=== PATIENT | female | born 1985 | race Caucasian/White ===

== ENCOUNTER → 2020-01-06 | Outpatient (CLI) | payer OTHER ==
[~2020-01-06] MED LIST: ALBU8.5H5 IH; ALPR0.25 PO; AMOX1TAB64 PO; ESCI10TA10 PO; GUAI10LI PO; LEVO500T8 PO; NITR100C56 PO; OMNIPAQUE 350 MG/ML, 50 ML BOTTLE ONE; ONDA4TAB10 PO; OXYC-302 PO; OXYC-306 PO; PREN1TAB28 PO; SENN-92 PO
== END | disposition home or self-care (01) ==
LOC: RAD 12:18
PROVIDERS: ATTEND Obstetrics & Gynecology Reproductive Endocrinology
DX: N70.11 Chronic salpingitis (principal)
CPT/HCPCS: 58340; 74740; Q9967

== ENCOUNTER → 2020-01-08 | Outpatient (CLI) | payer OTHER ==
[~2020-01-08] MED LIST changes: -OMNIPAQUE 350 MG/ML, 50 ML BOTTLE ONE
== END | disposition home or self-care (01) ==
LOC: LAB 13:10
PROVIDERS: ATTEND Obstetrics & Gynecology Reproductive Endocrinology
DX: N92.1 Excessive and frequent menstruation with irregular cycle (principal)
CPT/HCPCS: 36415; 82397; 82670; 83001; 84146; 84443; 86706; 86762; 86780; 86803; 87340; 87491; 87591; 87806; G0475

== ENCOUNTER 2020-03-13 11:08 | Emergency (ER) | payer OTHER ==
[~2020-03-13] VITALS: Ht 160 cm; Wt 96.7 kg
[~2020-03-13 11:08] MED LIST changes: -OXYC-302 PO; -OXYC-306 PO; +OXYC1TAB14 PO; +OXYC1TAB17 PO
[2020-03-13] MEDS ORDERED: PREN1TAB98 PO (11:40)
--- NOTE | 2020-03-13 11:47 | NUR ---
PT. TO ED WITH C/O SPOTTING THIS AM. STATES CRAMPING STARTED SHORTLY AFTER. A0. DELBERT DUPREE IN TO [facility]. AND DISCUSS POC.
[2020-03-13 12:11] LABS: BASOPHILS % (AUTO) 0 % (0-1); EOSINOPHILS % (AUTO) 2 % (1-7); LYMPHOCYTES % (AUTO) 18 % (22-44); MEAN CORPUSCULAR HGB CONC 34.4 g/dL (32.4-35.8); MEAN PLATELET VOLUME 8.8 fL (7.4-10.4); MONOCYTES % (AUTO) 8 % (2-9); NEUTROPHILS % (AUTO) 72 % (42-75); PLATELET COUNT 237 x10^3/uL (130-400); RED BLOOD COUNT 4.22 x10^6/uL (3.82-5.3); RED CELL DISTRIBUTION WIDTH 13.5 % (9.6-15.2)
[2020-03-13 12:12] LABS: MD NO
[2020-03-13 12:14] LABS: MICROSCOPIC AUTO
[2020-03-13 12:23] LABS: ALBUMIN 3.5 g/dL (3.4-5.0); ANION GAP 7 mmol/L (5-15); CALCIUM 8.9 mg/dL (8.5-10.1); CHLORIDE 106 mmol/L (98-107)
[2020-03-13 12:43] LABS: CREATININE 0.52 mg/dL (0.55-1.02)
[2020-03-13 12:54] VITALS: BP 121/75
--- NOTE | 2020-03-13 12:55 | NUR ---
US COMPLETED. VS UPDATED AND STABLE. PT. DENIES NEEDS AT THIS TIME. NO DISTRESS NOTED.
--- NOTE | 2020-03-13 13:21 | NUR ---
ALL RESULTS ARE BACK. CHART UP FOR RECHECK BY PROVIDER.
== END 2020-03-13 13:31 | disposition home or self-care (01) ==
LOC: ED 12:41
DX: O20.0 Threatened abortion (principal); Z3A.01 Less than 8 weeks gestation of pregnancy
CPT/HCPCS: 36415; 76801; 80048; 81001; 82040; 84702; 85025; 86901; 99284

== ENCOUNTER 2020-06-10 17:54 | Emergency (ER) | payer OTHER ==
[~2020-06-10] VITALS: Ht 160 cm; Wt 98.0 kg
[~2020-06-10 17:54] MED LIST changes: +PREN1TAB98 PO
[2020-06-10] MEDS ORDERED: FOLI1TAB32 PO (18:05)
[2020-06-10] MEDS ORDERED: CHOL10003 PO (18:05)
[2020-06-10] MEDS ORDERED: PRENATAL PO (18:05)
--- NOTE | 2020-06-10 18:38 | NUR ---
PT BROUGHT STRAIGHT FROM [employer], PT WAS STANDING AT WORK WHEN SHE FELT A SHARP, RIPPING PAIN TO RIGHT UPPER ABD QUAD, RADIATING THROUGH TO BACK FOR SEVERAL SECONDS. PT IS 20 WEEKS . PT DENIES VAG BLEEDING/CRAMPING/DISCHARGE. PT DENIES PAIN AT THIS TIME. PT A&O, RESPS EVEN AND UNLABORED. PT ATTACHED TO BP AND SPO2 MONITORS. 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 US ORDRED. AWAITING US AND DISPO.
--- NOTE | 2020-06-10 18:50 | NUR ---
REPORT FROM [facility] AT THIS TIME TRANSFER OF CARE.
[2020-06-10 18:53] VITALS: BP 111/69
--- NOTE | 2020-06-10 18:55 | NUR ---
REPORT GIVEN TO KRYSTINA PINEDA, US IN PROGRESS AT BEDSIDE. PT A&O, RESPS EVEN AND UNLABORED, NADN. BP AND SPO2 MONITORS IN PLACE.
== END 2020-06-10 20:36 | disposition home or self-care (01) ==
LOC: ED 18:08
DX: O26.892 Other specified pregnancy related conditions, second trimester (principal); R10.13 Epigastric pain; R10.33 Periumbilical pain; J45.909 Unspecified asthma, uncomplicated; Z3A.18 18 weeks gestation of pregnancy
CPT/HCPCS: 76815; 99284

== ENCOUNTER 2020-07-05 14:37 | Outpatient (CLI) | payer OTHER ==
[~2020-07-05] VITALS: Ht 160 cm; Wt 97.7 kg
[~2020-07-05 14:37] MED LIST changes: +CHOL10003 PO; +FOLI1TAB32 PO; +PRENATAL PO
[2020-07-05 14:48] VITALS: BP 117/62
[2020-07-05 15:36] LABS: MICROSCOPIC NOT IND
[2020-07-05 15:48] LABS: AMPHETAMINE SCREEN, URINE Negative (Negative); BARBITURATE SCREEN, URINE Negative (Negative); BENZODIAZEPINE SCREEN, URINE Negative (Negative); CANNABINOID SCREEN, URINE Negative (Negative); COCAINE SCREEN, URINE Negative (Negative); METHADONE SCREEN, URINE Negative (Negative); OPIATE SCREEN, URINE Negative (Negative)
== END 2020-07-05 15:58 | disposition home or self-care (01) ==
LOC: LDOP 14:37
PROVIDERS: ATTEND Student in an Organized Health Care Education/Training Program
DX: O99.512 Diseases of the respiratory system complicating pregnancy, second trimester (principal); R06.02 Shortness of breath; Z3A.22 22 weeks gestation of pregnancy
CPT/HCPCS: 80307; 81003; 99211; G0463

== ENCOUNTER 2020-09-17 01:16 | Outpatient (CLI) | payer OTHER ==
[~2020-09-17] VITALS: Ht 160 cm; Wt 97.7 kg
[2020-09-17 01:49] LABS: MICROSCOPIC NOT IND
[2020-09-17 02:00] VITALS: BP 126/72
[2020-09-17] MEDS ORDERED: PROMETHAZINE 25MG TABLET PO PRN (03:00)
[2020-09-17] MEDS ORDERED: TERBUTALINE 1 MG/ML, 1ML SQ ONE (03:00)
[2020-09-17] MEDS ORDERED: MEPERIDINE 50 MG TABLET PO PRN (03:00)
== END 2020-09-17 03:20 | disposition home or self-care (01) ==
LOC: LDOP 01:16
PROVIDERS: ATTEND Student in an Organized Health Care Education/Training Program
DX: O62.9 Abnormality of forces of labor, unspecified (principal); O47.03 False labor before 37 completed weeks of gestation, third trimester; Z3A.33 33 weeks gestation of pregnancy
CPT/HCPCS: 59025; 76817; 81003; 87086; Q0169

== ENCOUNTER 2020-10-18 07:03 | Emergency (ER) | payer OTHER ==
[~2020-10-18] VITALS: Ht 160 cm; Wt 100.1 kg
[~2020-10-18 07:03] MED LIST changes: +OXYC1TAB12 PO; -OXYC1TAB14 PO; +OXYC1TAB16 PO; -OXYC1TAB17 PO
--- NOTE | 2020-10-18 07:11 | NUR ---
L&D ACCOUNTS RECEIVABLE CLERK NOTIFIED OF PT, STATED THEY WILL BE DOWN TO DO HEART TONES ON BABY
--- NOTE | 2020-10-18 07:19 | NUR ---
PATIENT ARRIVES TO ER WITH 24 HOURS OF BODY ACHES, COUGH, COLD SWEATS, NV. PATIENT 39 WEEKS , DUE DATE 11/03/20 SCHEDULED FOR C SECTION. PATIENT WAS WORKING THIS MORNING AND THEY ENCOURAGED HER TO COME DOWN.
--- NOTE | 2020-10-18 07:29 | NUR ---
laura alvarez md. let l and d know they will come do heart tones/or nst.
[2020-10-18] MEDS ORDERED: SODIUM CHLORIDE FLUSH 10ML SYR IVF ONE (07:30)
[2020-10-18] MEDS ORDERED: SODIUM CHLORIDE 0.9% 1,000ML IVBOLUS ONE (07:30)
[2020-10-18] MEDS ORDERED: ONDANSETRON 2MG/ML, 2ML IVPush PRN (07:30)
[2020-10-18] MEDS ORDERED: ONDANSETRON 2MG/ML, 2ML ONE (07:51)
[2020-10-18 08:08] LABS: BASOPHILS % (AUTO) 0 % (0-1); EOSINOPHILS % (AUTO) 0 % (1-7); LYMPHOCYTES % (AUTO) 8 % (22-44); MEAN CORPUSCULAR HEMOGLOBIN 29.1 pg (27.0-34.8); MEAN CORPUSCULAR HGB CONC 33.2 g/dL (32.4-35.8); MEAN PLATELET VOLUME 9.4 fL (7.4-10.4); MONOCYTES % (AUTO) 13 % (2-9); NEUTROPHILS % (AUTO) 79 % (42-75); PLATELET COUNT 159 x10^3/uL (130-400); RED BLOOD COUNT 3.75 x10^6/uL (3.82-5.3); RED CELL DISTRIBUTION WIDTH 14.7 % (9.6-15.2)
--- NOTE | 2020-10-18 08:08 | NUR ---
LD here and monitoring baby
--- NOTE | 2020-10-18 08:10 | NUR ---
will collect urine when monitoring completed.
[2020-10-18 08:18] LABS: ALANINE AMINOTRANSFERASE 22 U/L (12-78); ALBUMIN 2.5 g/dL (3.4-5.0); ANION GAP 9 mmol/L (5-15); CALCIUM 8.4 mg/dL (8.5-10.1); CHLORIDE 104 mmol/L (98-107); CREATININE 0.51 mg/dL (0.55-1.02)
[2020-10-18 08:20] LABS: ALKALINE PHOSPHATASE 112 U/L (45-117); BILIRUBIN,TOTAL 0.4 mg/dL (0.2-1.0); TOTAL PROTEIN 6.2 g/dL (6.4-8.2)
[2020-10-18] MEDS ORDERED: ACETAMINOPHEN 500 MG TABLET ONE (08:26)
[2020-10-18] MEDS ORDERED: CEFTRIAXONE 1,000 MG in DEXTROSE 5% 50 ML IVPB ONE (08:30)
[2020-10-18] MEDS ORDERED: ACETAMINOPHEN 500 MG TABLET PO ONE (08:30)
--- NOTE | 2020-10-18 08:48 | NUR ---
urine sent clean catch. patient being drawn bc then will hang antibiotics
[2020-10-18 08:51] LABS: MICROSCOPIC NOT IND
--- NOTE | 2020-10-18 08:59 | NUR ---
report bia tai rn
--- NOTE | 2020-10-18 09:00 | NUR ---
REport received from Matias RN and care assumed. Pt with laborer tree tapping and US tech at bedside for exams now.
--- NOTE | 2020-10-18 09:25 | NUR ---
US tech and lab intern done with their exams. BC sets drawn, so Rocephin IV given as ordered. NS bolus completed and d/c'd. Pt states some effect on body aches present after Tylenol admin on reassessment at this time. Pt denied need for restroom and call light in reach. Pt states Jack-Rodriguez contractions present and have been since week 24 of gestation.
--- NOTE | 2020-10-18 09:55 | NUR ---
Joss gtt completed and d/c'd. Pt awaiting d/c paperwork with direction to go straight to L&D for further eval secondary to US findings per .
[2020-10-18 10:01] VITALS: BP 109/56
--- NOTE | 2020-10-18 10:02 | NUR ---
Pt d/c'd from ED with Saline lock left in place. Pt in wheelchair for transport to L&D with ED techs in a moment. Brief update to L&D RN provided via telephone as well as notification of pt leaving dept now after L&D RN called to inquire about pt.
== END 2020-10-18 10:09 | disposition home or self-care (01) ==
LOC: ED 07:55
DX: O98.513 Other viral diseases complicating pregnancy, third trimester (principal); U07.1 COVID-19; J18.0 Bronchopneumonia, unspecified organism; R06.02 Shortness of breath; O99.513 Diseases of the respiratory system complicating pregnancy, third trimester; J45.909 Unspecified asthma, uncomplicated; Z3A.38 38 weeks gestation of pregnancy
CPT/HCPCS: 36415; 71045; 76819; 80053; 81003; 83605; 84145; 85025; 87040; 87635; 93005; 96361; 96365; 96375; 99285; J0696; J2405; J7030; U0003; U0005

== ENCOUNTER 2020-10-18 10:18 | Observation (INO) | payer OTHER ==
[2020-10-18] MEDS ORDERED: METOCLOPRAMIDE 5 MG/ML, 2ML IV ONE (10:30)
[2020-10-18] MEDS ORDERED: PLEASE ENTER HEIGHT AND WEIGHT MC SCH (10:30)
[2020-10-18] MEDS ORDERED: LACTATED RINGERS 1,000 ML IVBOLUS ONE (10:30)
[2020-10-18] MEDS ORDERED: SODIUM CITRATE/CITRIC ACID 30 ML UDC PO ONE (10:30)
[2020-10-18] MEDS ORDERED: LACTATED RINGERS 1,000 ML IV SCH (13:00)
[2020-10-18] MEDS ORDERED: ACETAMINOPHEN 500 MG TABLET PO ONE (14:00)
[2020-10-18] MEDS ORDERED: MEPERIDINE/PF 50 MG/ML ONE (14:56)
[2020-10-18] MEDS ORDERED: CASIRIVIMAB 600 MG, IMDEVIMAB (REGN10987) 600 MG in SODIUM CHLORIDE 0.9% 250 ML IVPB ONE (15:00)
[2020-10-18] MEDS ORDERED: MEPERIDINE/PF 50 MG/ML IVPush ONE (15:00)
[2020-10-18] MEDS ORDERED: FILTER 0.22 MICRON IV ONE (15:00)
[2020-10-18] MEDS ORDERED: MEPERIDINE 50 MG TABLET PO ONE (15:00)
== END 2020-10-18 17:50 | disposition home or self-care (01) ==
LOC: INTOOBSV 10:18 → LDIP 10:18
PROVIDERS: ADMIT Student in an Organized Health Care Education/Training Program; ATTEND Student in an Organized Health Care Education/Training Program
DX: O98.513 Other viral diseases complicating pregnancy, third trimester (principal); U07.1 COVID-19; J12.82 Pneumonia due to coronavirus disease 2019; O99.513 Diseases of the respiratory system complicating pregnancy, third trimester; J45.909 Unspecified asthma, uncomplicated; O99.213 Obesity complicating pregnancy, third trimester; E66.01 Morbid (severe) obesity due to excess calories; O99.343 Other mental disorders complicating pregnancy, third trimester; F32.9 Major depressive disorder, single episode, unspecified; O34.219 Maternal care for unspecified type scar from previous cesarean delivery; O99.843 Bariatric surgery status complicating pregnancy, third trimester; Z3A.37 37 weeks gestation of pregnancy; Z79.899 Other long term (current) drug therapy; Z86.14 Personal history of Methicillin resistant Staphylococcus aureus infection
CPT/HCPCS: 36415; 59025; 76819; 86850; 86900; 96360; 96361; 96374; 96375; G0378; J2175; J7120; M0243

== ENCOUNTER 2020-10-19 19:39 | Outpatient (CLI) | payer OTHER ==
[2020-10-19 20:32] LABS: MICROSCOPIC INDICATED
== END 2020-10-19 21:30 | disposition home or self-care (01) ==
LOC: LDOP 19:39
PROVIDERS: ATTEND Student in an Organized Health Care Education/Training Program
DX: O36.8130 Decreased fetal movements, third trimester, not applicable or unspecified (principal); Z3A.37 37 weeks gestation of pregnancy
CPT/HCPCS: 59025; 76819; 81001

== ENCOUNTER 2020-10-22 16:11 | Outpatient (CLI) | payer OTHER | END 2020-10-22 18:30 | disposition home or self-care (01) | LOC: LDOP 16:11 | PROVIDERS: ATTEND Student in an Organized Health Care Education/Training Program | DX: Z34.93 Encounter for supervision of normal pregnancy, unspecified, third trimester (principal); Z3A.38 38 weeks gestation of pregnancy | CPT/HCPCS: 59025; 76819 ==

== ENCOUNTER 2020-10-27 09:39 | Observation (INO) | payer OTHER ==
[~2020-10-27] VITALS: Ht 160 cm; Wt 100.0 kg
[2020-10-27 13:28] LABS: BASOPHILS % (AUTO) 1 % (0-1); EOSINOPHILS % (AUTO) 1 % (1-7); LYMPHOCYTES % (AUTO) 18 % (22-44); MEAN CORPUSCULAR HEMOGLOBIN 29.2 pg (27.0-34.8); MEAN CORPUSCULAR HGB CONC 33.7 g/dL (32.4-35.8); MEAN PLATELET VOLUME 9.1 fL (7.4-10.4); MONOCYTES % (AUTO) 7 % (2-9); NEUTROPHILS % (AUTO) 74 % (42-75); PLATELET COUNT 221 x10^3/uL (130-400); RED BLOOD COUNT 4.05 x10^6/uL (3.82-5.3); RED CELL DISTRIBUTION WIDTH 15.2 % (9.6-15.2)
[2020-10-27] MEDS ORDERED: LACTATED RINGERS 1,000 ML IV SCH (13:30)
[2020-10-27] MEDS ORDERED: LACTATED RINGERS 1,000 ML IVBOLUS ONE (13:30)
[2020-10-27] MEDS ORDERED: PLEASE ENTER HEIGHT AND WEIGHT MC SCH (14:00)
== END 2020-10-27 16:55 | disposition home or self-care (01) ==
LOC: LDOP 09:39 → LDIP 16:15
PROVIDERS: ADMIT Student in an Organized Health Care Education/Training Program; ATTEND Student in an Organized Health Care Education/Training Program
DX: Z34.83 Encounter for supervision of other normal pregnancy, third trimester (principal); Z86.16 Personal history of COVID-19; Z3A.39 39 weeks gestation of pregnancy
CPT/HCPCS: 36415; 59025; 76805; 76819; 85025; 96360; 96361; G0378; G0379; J7120

== ENCOUNTER 2020-10-28 01:42 | Inpatient (IN) | payer OTHER ==
[~2020-10-28] VITALS: Ht 160 cm; Wt 99.8 kg
[2020-10-28] MEDS ORDERED: NEWBORN KIT ONE ×2 (05:35→10:42)
[2020-10-28] MEDS ORDERED: SODIUM CITRATE/CITRIC ACID 15 ML UDC ONE (05:36)
[2020-10-28] MEDS ORDERED: METOCLOPRAMIDE 5 MG/ML, 2ML ONE (05:36)
[2020-10-28 05:54] VITALS: BP 133/66
[2020-10-28] MEDS ORDERED: ONDANSETRON 2MG/ML, 2ML IVPush ONE ×2 (06:00→06:30)
[2020-10-28] MEDS ORDERED: LACTATED RINGERS 1,000 ML IVBOLUS ONE (06:00)
[2020-10-28] MEDS ORDERED: SODIUM CITRATE/CITRIC ACID 30 ML UDC PO ONE ×3 (06:00→10:00)
[2020-10-28] MEDS ORDERED: METOCLOPRAMIDE 5 MG/ML, 2ML IV ONE ×3 (06:00→10:00)
[2020-10-28 06:12] LABS: BASOPHILS % (AUTO) 1 % (0-1); EOSINOPHILS % (AUTO) 1 % (1-7); LYMPHOCYTES % (AUTO) 20 % (22-44); MEAN CORPUSCULAR HEMOGLOBIN 28.9 pg (27.0-34.8); MEAN CORPUSCULAR HGB CONC 33.5 g/dL (32.4-35.8); MEAN PLATELET VOLUME 9.2 fL (7.4-10.4); MONOCYTES % (AUTO) 9 % (2-9); NEUTROPHILS % (AUTO) 69 % (42-75); PLATELET COUNT 221 x10^3/uL (130-400); RED BLOOD COUNT 3.68 x10^6/uL (3.82-5.3); RED CELL DISTRIBUTION WIDTH 14.9 % (9.6-15.2)
[2020-10-28] MEDS ORDERED: LACTATED RINGERS 1,000 ML IV SCH (06:30)
[2020-10-28] MEDS ORDERED: CALCIUM CARBONATE 500 MG TAB.CHEW PO PRN (06:30)
[2020-10-28] MEDS ORDERED: CEFAZOLIN PMX 1GM/50ML 50 ML IVPB ONE (06:30)
[2020-10-28] MEDS ORDERED: OXYTOCIN 30U/ 0.9% NaCL 500ML 500 ML ONE (07:14)
[2020-10-28] MEDS ORDERED: morphine SULFATE/PF 0.5 MG/ML, 10ML ONE (07:24)
[2020-10-28] MEDS ORDERED: ONDANSETRON 2MG/ML, 2ML ONE (07:26)
[2020-10-28] MEDS ORDERED: OXYTOCIN 10 UNITS/ML, 1ML ONE (07:26)
[2020-10-28] MEDS ORDERED: CEFAZOLIN 1,000 MG ONE (07:26)
[2020-10-28] MEDS ORDERED: KETOROLAC 30 MG/1 ML ONE (07:26)
[2020-10-28] MEDS ORDERED: SODIUM CHLORIDE 0.9% PF 10ML ONE ×2 (07:26→07:50)
[2020-10-28] MEDS ORDERED: PHENYLEPHRINE 10 MG/ML ONE (07:26)
[2020-10-28] MEDS ORDERED: DEXAMETHASONE 4 MG/ML, 1ML ONE (07:26)
[2020-10-28] MEDS ORDERED: EPHEDRINE 50 MG/ML, 1ML ONE (07:50)
[2020-10-28] MEDS ORDERED: METHYLENE BLUE 50 MG/10 ML AMP ONE (08:22)
[2020-10-28] MEDS: PRENATAL VIT/IRON/FA 1 EACH TABLET PO SCH (09:00)
[2020-10-28] MEDS: LACTATED RINGERS 1,000 ML IV SCH ×4 (09:00→19:00)
[2020-10-28] MEDS ORDERED: ONDANSETRON 2MG/ML, 2ML IV PRN (09:00)
[2020-10-28] MEDS ORDERED: MISOPROSTOL 200 MCG TABLET PR PRN (09:00)
[2020-10-28] MEDS: IBUPROFEN 600 MG TABLET PO SCH ×3 (09:00→21:00)
[2020-10-28] MEDS ORDERED: OXYcodone IR 5MG TABLET PO PRN (09:00)
[2020-10-28] MEDS ORDERED: DIPHENHYDRAMINE 50 MG/ML, 1ML IVPush PRN (10:00)
[2020-10-28] MEDS ORDERED: OXYcodone 5 MG/5 ML ORAL.SOL UDC PO PRN (10:00)
[2020-10-28] MEDS: OXYTOCIN 30U/ 0.9% NaCL 500ML 500 ML IV SCH ×2 (10:07→19:00)
[2020-10-28 11:30] VITALS: BP 115/70
[2020-10-28] MEDS: KETOROLAC 30 MG/1 ML IV SCH ×2 (14:08→19:57)
[2020-10-28] MEDS: ACETAMINOPHEN 325 MG TABLET PO SCH ×2 (14:08→19:57)
[2020-10-28] MEDS: SIMETHICONE 80 MG CHEW TAB PO PRN ×2 (14:09→19:57)
[2020-10-28 16:11] LABS: MEAN CORPUSCULAR HEMOGLOBIN 28.9 pg (27.0-34.8); MEAN CORPUSCULAR HGB CONC 33.5 g/dL (32.4-35.8); MEAN PLATELET VOLUME 9.1 fL (7.4-10.4); PLATELET COUNT 211 x10^3/uL (130-400); RED BLOOD COUNT 3.63 x10^6/uL (3.82-5.3); RED CELL DISTRIBUTION WIDTH 14.6 % (9.6-15.2)
[2020-10-28 16:50] LABS: BAND#(MANUAL) 1.63 x10^3/uL; BANDS%(MANUAL) 13 % (0-7); LYMPH#(MANUAL) 0.75 x10^3/uL (1-3.4); LYMPHS% (MANUAL) 6 % (22-44); MONOS#(MANUAL) 0.13 x10^3/uL (0.3-2.7); MONOS% (MANUAL) 1 % (2-9); SEGS% (MANUAL) 80 % (42-75)
[2020-10-28 16:51] LABS: <PLATELET ESTIMATE> ADEQUATE; <PLT MORPHOLOGY> NORMAL PLT MORPH; ANISOCYTOSIS 1+
[2020-10-28 17:00] VITALS: BP 99/61
[2020-10-28] MEDS: DOCUSATE 100 MG CAPSULE PO PRN (19:57)
[2020-10-28 20:00] VITALS: BP 115/73
[2020-10-29 01:00] VITALS: BP 98/62
[2020-10-29] MEDS: LACTATED RINGERS 1,000 ML IV SCH ×5 (01:00→17:00)
[2020-10-29] MEDS: KETOROLAC 30 MG/1 ML IV SCH ×4 (01:48→20:15)
[2020-10-29] MEDS: ACETAMINOPHEN 325 MG TABLET PO SCH ×5 (01:49→21:00)
[2020-10-29] MEDS: SIMETHICONE 80 MG CHEW TAB PO PRN ×3 (01:49→20:15)
[2020-10-29] MEDS: IBUPROFEN 600 MG TABLET PO SCH ×4 (03:00→21:00)
[2020-10-29 04:45] VITALS: BP 97/62
[2020-10-29] MEDS: OXYTOCIN 30U/ 0.9% NaCL 500ML 500 ML IV SCH ×2 (05:00→15:00)
[2020-10-29 07:00] VITALS: BP 104/71
[2020-10-29] MEDS: PRENATAL VIT/IRON/FA 1 EACH TABLET PO SCH (08:06)
[2020-10-29] MEDS: OXYcodone IR 5MG TABLET PO PRN ×2 (14:06→20:15)
[2020-10-29 19:40] VITALS: BP 104/66
[2020-10-29] MEDS: DOCUSATE 100 MG CAPSULE PO PRN (20:15)
[2020-10-30] MEDS: LACTATED RINGERS 1,000 ML IV SCH ×2 (01:00)
[2020-10-30] MEDS: OXYTOCIN 30U/ 0.9% NaCL 500ML 500 ML IV SCH (01:00)
[2020-10-30] MEDS: KETOROLAC 30 MG/1 ML IV SCH ×2 (02:04→08:00)
[2020-10-30] MEDS: ACETAMINOPHEN 325 MG TABLET PO SCH ×2 (02:05→08:55)
[2020-10-30] MEDS: OXYcodone IR 5MG TABLET PO PRN ×2 (02:05→08:58)
[2020-10-30] MEDS: IBUPROFEN 600 MG TABLET PO SCH (03:00)
[2020-10-30] MEDS ORDERED: OXYC5TAB98 PO (06:12)
[2020-10-30 07:30] VITALS: BP 112/73
[2020-10-30] MEDS: SIMETHICONE 80 MG CHEW TAB PO PRN (08:55)
[2020-10-30] MEDS: PRENATAL VIT/IRON/FA 1 EACH TABLET PO SCH (09:00)
== END 2020-10-30 09:56 | disposition home or self-care (01) | DRG 768 ==
LOC: LDIP 05:20 → 2NW 10:55
PROVIDERS: ADMIT Student in an Organized Health Care Education/Training Program; ATTEND Student in an Organized Health Care Education/Training Program
PROC: 10E0XZZ Delivery of Products of Conception, External Approach (ICD-10-PCS; principal; 2020-10-28)
PROC: 0DNW0ZZ Release Peritoneum, Open Approach (ICD-10-PCS; 2020-10-28)
PROC: 0UB70ZZ Excision of Bilateral Fallopian Tubes, Open Approach (ICD-10-PCS; 2020-10-28)
DX: O99.214 Obesity complicating childbirth (principal); Z37.0 Single live birth; O99.344 Other mental disorders complicating childbirth; F41.9 Anxiety disorder, unspecified; F32.9 Major depressive disorder, single episode, unspecified; E55.9 Vitamin D deficiency, unspecified; J45.909 Unspecified asthma, uncomplicated; O99.284 Endocrine, nutritional and metabolic diseases complicating childbirth; O99.52 Diseases of the respiratory system complicating childbirth; O99.844 Bariatric surgery status complicating childbirth; O34.211 Maternal care for low transverse scar from previous cesarean delivery; E66.9 Obesity, unspecified; O99.62 Diseases of the digestive system complicating childbirth; K66.0 Peritoneal adhesions (postprocedural) (postinfection); Z30.2 Encounter for sterilization; Z3A.39 39 weeks gestation of pregnancy; Z81.8 Family history of other mental and behavioral disorders; Z82.3 Family history of stroke; Z82.49 Family history of ischemic heart disease and other diseases of the circulatory system; Z86.14 Personal history of Methicillin resistant Staphylococcus aureus infection; Z86.16 Personal history of COVID-19; Z90.49 Acquired absence of other specified parts of digestive tract
CPT/HCPCS: 36415; 82947; 85025; 86592; 86850; 86900; 88302; G0378; J0690; J1100; J1885; J2274; J2405; Q9968; J1200; J2370; J2590; J2765; J7120

== ENCOUNTER 2020-10-31 10:50 | Outpatient (CLI) | payer OTHER ==
[~2020-10-31 10:50] MED LIST changes: +OXYC5TAB98 PO
== END 2020-10-31 11:40 | disposition home or self-care (01) ==
LOC: LDOP 10:50
PROVIDERS: ATTEND Student in an Organized Health Care Education/Training Program
DX: O09.93 Supervision of high risk pregnancy, unspecified, third trimester (principal); Z3A.39 39 weeks gestation of pregnancy
CPT/HCPCS: 99211; G0463